=== PATIENT | female | born 1970 | race Caucasian/White ===

== ENCOUNTER → 2016-06-25 | Outpatient (CLI) | payer BC ==
[~2016-06-25] MED LIST: ALLO100T PO; CEFU500T PO; CEPH500T PO; CITA20TA12 PO; FAMO-119 PO; HYDR-3816 PO; HYDR-3820 PO; HYDR-3875 PO; HYDR-3876 PO; HYDR25TA4 PO; MOVE FREE ULTR1 EAC1 PO; MULT-301 PO; NF-ESOM40C PO; NF-URO10 PO; NITR-65 PO; OMG1KC PO; ONDN4T PO; PHEN-640 PO; TAMS0.4C98 PO
--- NOTE | 2016-06-25 17:42 | Diagnostic Imaging Report ---
PROCEDURE: MRI right joint lower extremity without contrast. TECHNIQUE: Multiplanar, multisequence non contrast-enhanced MRI of the right lower extremity was accomplished. INDICATION: Knee pain. FINDINGS: The anterior cruciate and posterior cruciate ligaments are intact. There is some mild thickening of the medial collateral ligament which otherwise appears intact. The biceps femoris, fibular collateral and iliotibial band are intact. There is degenerative maceration of both the anterior and posterior horns of the medial meniscus. Lateral meniscus is grossly normal in signal intensity and morphology. The quadriceps tendon and patellar tendons are intact. There is a moderate knee joint effusion. There is a somewhat thickened medial patellar plica. There are no other focal soft tissue abnormalities. There is complete loss of articular cartilage in the medial knee joint compartment with underlying marrow edema both in the medial femoral condyle and medial tibial plateau. The articular cartilage in the lateral knee joint compartment and patellofemoral joint is maintained. IMPRESSION: 1. Moderately severe osteoarthritic change in the medial knee joint compartment with loss of articular cartilage and underlying marrow edema. Additionally, there is degenerative maceration of the medial meniscus which is displaced medially out of the joint space. 2. Moderate knee joint effusion with thickened medial patellar plica. 3. No other internal derangement of the knee. Dictated by: Dictated on workstation # [id number]
== END ==
LOC: RAD 16:47
PROVIDERS: ATTEND Nurse Practitioner Family
DX: M25.561 Pain in right knee (principal)
CPT/HCPCS: 73721

== ENCOUNTER → 2016-06-25 | Outpatient (CLI) | payer BC ==
--- NOTE | 2016-06-25 13:15 | Diagnostic Imaging Report ---
EXAMINATION: Three views of the right knee. INDICATION: Right hip pain. FINDINGS: No fracture, dislocation, or radiopaque foreign body is seen. There is significant joint space narrowing with nearly a [id number] appearance in the medial compartment seen. Prominent osteophyte formation, mostly in the medial and patellofemoral compartments, is seen. No significant suprapatellar effusion. IMPRESSION: Osteoarthritis is most prominent in the medial compartment. Dictated by: Dictated on workstation # [id number]
== END ==
LOC: RAD 11:06
PROVIDERS: ATTEND Family Medicine
DX: M25.561 Pain in right knee (principal)
CPT/HCPCS: 73562

== ENCOUNTER 2016-07-17 08:50 | Outpatient (CLI) | payer BC ==
[~2016-07-17] VITALS: Ht 182.9 cm; Wt 150.2 kg
[2016-07-17 08:57] VITALS: BP 139/87
[2016-07-17] MEDS ORDERED: FISH1CAP15 PO (09:07)
[2016-07-17] MEDS ORDERED: CETI10TA20 PO (09:07)
[2016-07-17] MEDS ORDERED: CHOL500044 PO (09:07)
[2016-07-17] MEDS ORDERED: FLUT9.9S NSEACH (09:07)
[2016-07-17] MEDS ORDERED: DICL35CA PO (09:07)
[2016-07-17 09:42] LABS: BILIRUBIN,URINE NEGATIVE (NEGATIVE); KETONES,URINE NEGATIVE (NEGATIVE); LEUKOCYTE ESTERASE ,URINE 1+ (NEGATIVE); NITRITE,URINE NEGATIVE (NEGATIVE); PH,URINE 7 (5-9); PROTEIN,URINE NEGATIVE (NEGATIVE); UROBILINOGEN,URINE NORMAL (NORMAL)
[2016-07-17 09:43] LABS: BASOPHILS % (AUTO) 0 % (0-10); EOSINOPHILS # (AUTO) 0.3 10^3/uL (0.0-0.3); EOSINOPHILS % (AUTO) 4 % (0-10); LYMPHOCYTES # (AUTO) 1.8 X 10^3 (1.0-4.0); LYMPHOCYTES % (AUTO) 24 % (12-44); MEAN CORPUSCULAR HEMOGLOBIN 26 PG (25-34); MEAN CORPUSCULAR HGB CONC 33 G/DL (32-36); MEAN CORPUSCULAR VOLUME 79 FL (80-99); MONOCYTES # (AUTO) 0.4 X 10^3 (0.0-1.0); MONOCYTES % (AUTO) 6 % (0-12); NEUTROPHILS % (AUTO) 67 % (42-75); PLATELET COUNT 292 10^3/uL (130-400); RED BLOOD COUNT 4.99 10^6/uL (4.35-5.85); RED CELL DISTRIBUTION WIDTH 16.1 % (10.0-14.5); WHITE BLOOD COUNT 7.4 10^3/uL (4.3-11.0)
[2016-07-17 09:57] LABS: SQUAMOUS EPITHELIAL CELL,UR 0-2 /HPF; WBC,URINE 0-2 /HPF
[2016-07-17 09:59] LABS: INR 0.9 (0.8-1.4); PROTHROMBIN TIME PATIENT 11.9 SEC (12.2-14.7)
[2016-07-17 10:01] LABS: ALANINE AMINOTRANSFERASE 35 U/L (0-55); ALBUMIN 3.9 G/DL (3.2-4.5); ANION GAP 10 MMOL/L (5-14); ASPARTATE AMINO TRANSFERASE 28 U/L (5-34); BILIRUBIN,TOTAL 0.3 MG/DL (0.1-1.0); BLOOD UREA NITROGEN 22 MG/DL (7-18); BUN/CREATININE RATIO 24; CALCIUM 9.3 MG/DL (8.5-10.1); CARBON DIOXIDE 25 MMOL/L (21-32); CHLORIDE 103 MMOL/L (98-107); CREATININE SERUM 0.92 MG/DL (0.60-1.30); GFR ESTIMATED > 60; GLUCOSE 120 MG/DL (70-105); POTASSIUM 3.6 MMOL/L (3.6-5.0); SODIUM 138 MMOL/L (135-145); TOTAL PROTEIN 7.1 G/DL (6.4-8.2)
[2016-07-17 12:24] LABS: ERYTHROCYTE SEDIMENTATION RATE 11 MM/HR (0-20)
--- NOTE | 2016-07-17 14:31 | Diagnostic Imaging Report ---
PA and lateral views of the chest. INDICATION: Preoperative evaluation for knee replacement. FINDINGS: There is cardiomegaly without active congestion or failure. Mild opacity in the anterior aspect of the right lung base is probably related to prominent pericardial fat pad with no definite consolidation in the lungs. No effusion or pneumothorax. The mediastinum and alex appear unremarkable. Degenerative anterior osteophytes in the thoracic spine seen. IMPRESSION: Cardiomegaly. Dictated by: Dictated on workstation # [id number]
== END 2016-07-17 09:50 | disposition home or self-care (01) ==
LOC: PREOP 08:50
PROVIDERS: ATTEND Orthopaedic Surgery
DX: Z01.810 Encounter for preprocedural cardiovascular examination (principal); Z01.812 Encounter for preprocedural laboratory examination; Z11.2 Encounter for screening for other bacterial diseases; M17.11 Unilateral primary osteoarthritis, right knee; R53.83 Other fatigue; I51.7 Cardiomegaly
CPT/HCPCS: 36415; 71020; 80053; 81000; 85025; 85610; 85652; 86850; 86900; 86901; 87081; 93005

== ENCOUNTER 2016-07-23 06:15 | Inpatient (IN) | payer BC ==
--- NOTE | 2016-07-15 16:39 | HISTORY AND PHYSICAL ---
DATE OF SERVICE: 07/23/2016 REASON FOR ADMISSION: Left total knee arthroplasty. HISTORY OF PRESENT ILLNESS: The patient is a 46-year-old female with longstanding right knee pain. She has undergone treatment with injections and anti-inflammatories and arthroscopy without relief. She reports marked functional impairment, and due to failure to improve with conservative measures, the patient has elected to proceed with surgical intervention. Radiographs reveal complete loss of medial and patellofemoral joint spaces. The patient understands that at her age, she will likely require a revision arthroplasty. REVIEW OF SYSTEMS: No chest pain. No shortness of breath. No dysuria. PAST MEDICAL HISTORY: Renal stones. PAST SURGICAL HISTORY: Knee arthroscopy, wrist, cholecystectomy, , lithotripsy. FAMILY HISTORY: Noncontributory. PRIMARY CARE PROVIDER: Dr. Ortiz. MEDICATIONS: Potassium, allopurinol, hydrochlorothiazide and vitamin D. ALLERGIES: WELLBUTRIN. SOCIAL HISTORY: The patient drinks alcohol socially. Denies tobacco use. PHYSICAL EXAMINATION: GENERAL: The patient is well developed, well nourished, in no acute distress. HEENT: Normocephalic, atraumatic. Pupils are equal, round and reactive to light. Oropharynx is clear. NECK: Supple. No lymphadenopathy. LUNGS: Clear to auscultation bilaterally. HEART: Regular rate and rhythm. ABDOMEN: Soft, nontender, nondistended. EXTREMITIES: The patient ambulated with an antalgic gait on the right. The right knee demonstrates a moderate effusion. She is tender along her mediofemoral condyle. She has patellofemoral crepitus with range of motion. Range of motion is 0/4/120. No varus valgus laxity. Negative anterior and posterior drawer. Negative straight leg raise. No pain with internal or external rotation of the hip. IMPRESSION: Severe right knee osteoarthritis unresponsive to conservative measures. PLAN: Right total knee arthroplasty. The risks, benefits, options, ramifications and recovery have been discussed at length with the patient. She understands and wishes to proceed. Job ID: [id number] DocumentID: [id number] Dictated Date: 07/15/2016 16:09:05 Strategies Analyst Date: 07/15/2016 16:38:24 Dictated By: GRETEL REGALADO MD [facility]
[~2016-07-23] VITALS: Ht 182.9 cm; Wt 150.2 kg
[~2016-07-23 06:15] MED LIST changes: +CETI10TA20 PO; +CHOL500044 PO; +DICL35CA PO; +FISH1CAP15 PO; +FLUT9.9S NSEACH
[2016-07-23] MEDS ORDERED: DEXAMETHASONE PF 10 MG/ML (DECADRON) VIAL ONE (06:38)
[2016-07-23] MEDS ORDERED: fentaNYL INJECTION 100 MCG/2 ML AMP ONE ×2 (06:38→08:21)
[2016-07-23] MEDS ORDERED: proPOfol 200 MG/20 ML (DIPRIVAN) VIAL IV ONE (06:38)
[2016-07-23] MEDS ORDERED: SEVOFLURANE (ULTANE) 15 ML INHAL SOLN ONE ×8 (06:38→09:30)
[2016-07-23] MEDS ORDERED: LIDOCAINE PF 2% 5 ML (XYLOCAINE) VIAL ONE (06:38)
[2016-07-23] MEDS ORDERED: HURRICAINE EXT TUBE (BENZOCAINE) ONE (06:38)
[2016-07-23] MEDS ORDERED: MIDAZOLAM 2 MG/2 ML (VERSED) VIAL ONE (06:39)
[2016-07-23] MEDS ORDERED: ATRACURIUM 50 MG/5 ML (TRACRIUM) IV ONE (06:44)
[2016-07-23] MEDS ORDERED: FAMOTIDINE 20MG/2ML IV (PEPCID) IV ONE (06:45)
[2016-07-23] MEDS ORDERED: CEFUROXIME 1.5 GM (ZINACEF) VIAL ONE (06:58)
[2016-07-23] MEDS ORDERED: NS (IVPB) 50 ML ONE (06:58)
[2016-07-23] MEDS: LACTATED RINGERS 1,000 ML IV PRN ×2 (07:10→08:34)
--- NOTE | 2016-07-23 07:21 | Progress Note-Pre Operative ---
Pre-Operative Progress Note H&P Reviewed The H&P was reviewed, patient examined and no changes noted. Date Seen by Provider: Jul 23, 2016 Time Seen by Provider: 07:11 Date H&P Reviewed: Jul 23, 2016 Time H&P Reviewed: 07:11 Pre-Operative Diagnosis: right knee primary osteoarthritis GRETEL REGALADO MD Jul 23, 2016 07:21
--- NOTE | 2016-07-23 07:22 | Progress Note-Post Operative ---
Post-Operative Progess Note Surgeon (s)/Inspector Pawnshop Detail (s) Surgeon GRETEL REGALADO MD Inspector Pawnshop Detail: Brooks Coffman Pre-Operative Diagnosis right knee primary osteoarthritis Post-Operative Diagnosis right knee primary osteoarthrits Procedure & Operative Findings Date of Procedure 07/23/16 Procedure Performed/Findings right total knee arthroplasty Anesthesia Type GETA Estimated Blood Loss Estimated blood loss (mL): minimal Specimens/Packing Specimens Removed none Packing: none GRETEL REGALADO MD Jul 23, 2016 07:22
[2016-07-23] MEDS ORDERED: CEFUROXIME 1.5 GM/NS 50 ML IVPB IV ONE ×2 (07:30)
[2016-07-23] MEDS ORDERED: CATHETER FLUSH 10 ML SYR IV PRN (07:30)
[2016-07-23] MEDS ORDERED: INTRA-ARTICULAR INJ ONE ×5 (07:30)
[2016-07-23 07:38] VITALS: BP 126/89
[2016-07-23] MEDS ORDERED: ESMOLOL 100 MG/10 ML (BREVIBLOC) VIAL ONE (08:11)
[2016-07-23] MEDS ORDERED: morphine PF (DURAMORPH) 10 MG/10 ML AMP ONE (09:05)
[2016-07-23] MEDS ORDERED: morphine INJ 10 MG/ML 1ML (SYR OR VIAL) ONE (09:14)
[2016-07-23] MEDS: HYDROmorphone (DILAUDID) 2 MG/ML VIAL IVP PRN ×4 (09:46→10:16)
--- NOTE | 2016-07-23 10:17 | Progress Note-Standard ---
Standard Progress Note Progress Notes/Assess & Plan Date Seen by Provider: Jul 23, 2016 Time Seen by Provider: 10:16 Progress/Assessment & Plan Post op check No complaints Radiographs--HW well positioned. No fractures RLE--2 plus DP pulse with brisk cap refill. Sensation intact throughout. Intact DF and PF of toes and ankle s/p RTKA Mobilize as able GRETEL REGALADO MD Jul 23, 2016 10:17
[2016-07-23] MEDS ORDERED: OXYC-197 PO (10:20)
--- NOTE | 2016-07-23 10:24 | Diagnostic Imaging Report ---
2 views of the right knee. Indication: post total knee arthroplasty Findings: There is femoral and tibial prosthesis with patellar resurfacing and prosthesis seen. Anterior soft tissue post-operative changes are noted with anterior skin gabriela seen. Impression: Baseline post right total knee arthroplasty in good alignment. Dictated by: Dictated on workstation # [id number]
[2016-07-23] MEDS ORDERED: morphine PCA 30 MG/30 ML VIAL IV ONE (10:54)
[2016-07-23] MEDS ORDERED: NS IV 1000 ML 1,000 ML ONE (10:54)
[2016-07-23] MEDS ORDERED: ACETAMINOPHEN 325 MG TABLET/CAPLET (TYLENOL) PO PRN (11:03)
[2016-07-23] MEDS: NS IV 1000 ML 1,000 ML IV SCH ×3 (11:05→23:21)
[2016-07-23] MEDS ORDERED: diphenhydrAMINE 50 MG/ML INJ (BENADRYL) IVP PRN (11:05)
[2016-07-23] MEDS ORDERED: LIRA0.6P3 SQ (11:26)
[2016-07-23] MEDS ORDERED: LIRA0.6P3 SC (11:26)
--- NOTE | 2016-07-23 11:45 | OPERATIVE REPORT ---
DATE OF SERVICE: 07/23/2016 PREOPERATIVE DIAGNOSIS: Right knee primary osteoarthritis. POSTOPERATIVE DIAGNOSIS: Right knee primary osteoarthritis. PROCEDURE: Right total knee arthroplasty. SURGEON: Terrell CHANGE MANAGEMENT DIRECTOR: Brooks Coffman, who assisted throughout the procedure and closed the incision. ANESTHESIA: General endotracheal by Dr. Patterson TOURNIQUET TIME: 70 minutes at 300 mmHg. ESTIMATED BLOOD LOSS: Minimal. DRAINS: None. COMPLICATIONS: None. POSTOPERATIVE PLAN: Routine total knee arthroplasty protocol. MATERIALS: MicroPort cemented size 5 Evolution femur, cemented size 3 Advance tibia base with a 30 mm stem with a 12 mm insert and a cemented 32 patellar button. DISPOSITION: Patient was transferred to the recovery room awake and in stable condition. STATEMENT OF MEDICAL NECESSITY: Patient is a 46-year-old female with a longstanding progressive right knee pain. Radiographs revealed complete loss of medial and patellofemoral joint spaces. She had undergone treatment with extensive conservative measures, including arthroscopy, injections, anti-inflammatories, rest and activity modifications without relief and due to functional impairment and failure to improve with conservative measures, the patient elected to proceed with surgical intervention. PROCEDURE: After risks and benefits of the procedure were discussed and questions were answered, an informed consent was now placed in the chart. The operative site was confirmed in the preop holding area and initialed by the surgeon. The patient was then transported to the operating room and after adequate levels of general endotracheal anesthetic were obtained, a timeout was called, confirming the operative site. The right lower extremity was then prepped and draped in the usual sterile fashion. With the leg elevated and the knee flexed, tourniquet was inflated to 300 mmHg. A standard anterior approach was utilized. Hemostasis was obtained with cautery. The medial parapatellar arthrotomy was performed leaving a 1 cm cuff on the patella for later reattachment. A portion of the fat pad was resected and a subperiosteal release was performed on the proximal and medial tibia, being careful to stay on the bony surface. The ACL was resected. The intramedullary guide was passed into the femur. The distal cutting block was placed and a distal cut was made. The femur was sized to a size 5. The 5 cutting block was placed parallel to the epicondylar axis and cuts were made from [id number]. A subperiosteal release was then performed on the posterior distal femur, being careful to stay on the bony surface with a curved osteotome. Attention was then turned to the tibia. Intramedullary guide was passed into the tibia. The cutting block was placed. The drop chloe transected the intramedullary access. A cut was made. The 3 baseplate was placed, which had excellent coverage. This was pinned into position and then prepared with a drill and keel punch. The patella was then prepared using the freehand technique by resecting 10 mm off the undersurface. The peg guide was placed and the peg holes were drilled. The trials were inserted. The femoral trochlear cut was made. With a 12 mm insert and 32 mm button, full extension was easily obtained and 120 degrees of flexion with gravity was easily obtained. The patella tracked well. The knee was stable to anterior/posterior and medial/lateral stress in flexion and extension. Trials were removed. The joint was irrigated with pulse lavage. The bone ends were irrigated with pulse lavage. The periarticular block was placed in the posterior capsule, medial and lateral retinaculum and extensor mechanism, as well as the subcutaneous tissue. After the bone ends had been irrigated and dried. The tibial base plate was cemented into position. Excessive cement was removed. The superior surface was irrigated and dried and polyethylene insert was placed. The distal femur was irrigated and dried and the femoral prosthesis was cemented into position and excessive cement was removed. The knee was brought out and into full extension until the cement had cured. The undersurface of the patella was irrigated and dried and the patellar button was cemented into position. This was held until the cement had cured. Then, the knee was taken through a range of motion. Full extension was easily obtained, 120 degrees of flexion with gravity was easily obtained. The patella tracked well. There was no laxity in flexion or extension to medial/lateral or anterior/posterior stress. The joint was further irrigated with the pulse lavage. The arthrotomy was closed with #2 Tevdek in uvxcaj-ow-[id number] interrupted fashion. The knee was then flexed and the repair was stable with the patella tracking well. The subcutaneous tissues were irrigated with pulse lavage and 0 Vicryl was used for the deep subcutaneous tissue, 2-0 Vicryl for the superficial subcutaneous tissue. Cressona were used on the skin. A soft dressing was applied. The tourniquet was deflated. Patient was transported to the recovery room, awake and in stable condition. Job ID: [id number] DocumentID: [id number] Dictated Date: 07/23/2016 09:33:36 Process Lead Date: 07/23/2016 11:44:43 Dictated By: GRETEL REGALADO MD
[2016-07-23 12:00] VITALS: BP 151/84
[2016-07-23] MEDS: ONDANSETRON 4 MG/2 ML (SDV) Z0FRAN IVP PRN (12:57)
[2016-07-23] MEDS: SENNA W/DOCUSATE (SENOKOT S) TABLET PO SCH ×2 (12:57→21:08)
--- NOTE | 2016-07-23 14:35 | Physical Therapy Evaluation ---
PT Evaluation-General Medical Diagnosis Admission Date Jul 23, 2016 at 06:15 Medical Diagnosis: right TKA Onset Date: Jul 23, 2016 Therapy Diagnosis Therapy Diagnosis: impaired mobility, strength, ROM, endurance Height/Weight Height (Feet): 6 Height (Inches): 0.00 Weight (Pounds): 331 Weight (Ounces): 1.0 Precautions Precautions/Isolations: Fall Prevention, Standard Precautions Weight Bear Status Weight Bearing Restriction: Weight Bearing/Tolerated Location Restriction: R LE Referral Physician: Brooks Coffman Reason for Referral: Evaluation/Treatment Medical History Additional Medical History renal stones Current History elective surgery after conservative treatment Reviewed History: Yes Social History Current Living Status: Spouse Prior/Core FIM Prior Level of Function Functional [place] Measure 0=Not Assessed/NA 4=Minimal Assistance 1=Total Assistance 5=Supervision or Setup 2=Maximal Assistance 6=Modified [place] 3=Moderate Assistance 7=Complete [place] Bed Mobility: 7 Transfers (B,C,W/C) (FIM): 7 Gait: 7 PT Evaluation-Current Subjective Patient in bed pre tx, agrees to PT, has 5/10 pain. Pt/Family Goals to be independent at home Objective Patient Orientation: Normal For Age Attachments: Oxygen, IV ROM/Strength ROM Lower Extremities right knee flexion 40 degrees, extension +5 degrees Strenght Lower Extremities NT Integumentary/Posture Bowel Incontinence: No Bladder Incontinence: No Neuromuscular (Tone, Coordination, Reflexes) WNL Sensory Vision: Functional Hearing: Functional Sensation Right Lower Extremit: Intact Sensation Left Lower Extremity: Intact Transfers Functional [place] Measure 0=Not Assessed/NA 4=Minimal Assistance 1=Total Assistance 5=Supervision or Setup 2=Maximal Assistance 6=Modified [place] 3=Moderate Assistance 7=Complete [place] Transfers (B, C, W/C) (FIM): 4 Scootin Rollin Supine to/from Sit: 4 Sit to/from Stand: 4 Bed mobility SBA except for supine to sit min assist with right leg, CGA to stand. Patient was nauseated after standing but wanted to ambulate to the bathroom. Gait Mode of Locomotion: Walk Anticipated Mode of Locomotion: Walk Gait (FIM): 1 Distance: 20'x2 Gait Level of Assist: 4 Gait Persons Needed: 1 Gait Assistive Device: FWW Comments/Gait Description slow, antalgic, flexed right knee, poor heel strike Balance Sitting Static: Normal Sitting Dynamic: Normal Standing Static: Fair Standing Dynamic: Fair Treatment RLE TKA protocol x10 (AP, QS, HS, SAQ, SLR). CPM applied and set to 40 flex/-2 ext Assessment/Needs Patient has impaired mobility, strength, ROM, and endurance post right TKA. Rehab Potential: Fair PT Train Operator Goals Train Operator Goals PT Usp Goals Time Frame: Jul 30, 2016 Transfers (B,C,W/C) (FIM): 5 Gait (FIM): 5 Distance: 150' Gait Level of Assist: 5 Gait Assistive Device: FWW PT Plan Problem List Problem List: Activity Tolerance, Functional Strength, Safety, Balance, Gait, Transfer, Bed Mobility, ROM Treatment/Plan Treatment Plan: Continue Plan of Care Treatment Plan: Bed Mobility, Education, Functional Activity Domenic, Functional Strength, Gait, Safety, Therapeutic Exercise, Transfers Treatment Duration: Jul 30, 2016 # of days/week 5-6 Visits Per Week: 10-11 Minutes/Day (M-F): 15-30 Minutes/Day (Sat/Lara): 15-30 Pt/Family Agrees w/Plan: Yes Safety Risks/Education Patient Education: Gait Training, Transfer Techniques, Reviewed Use of Ice, Correct Positioning, Disease Process, Safety Issues Teaching Recipient: Patient Teaching Methods: Demonstration, Discussion Response to Teaching: Reinforcement Needed Discharge Recommendations Plan Patient will perform bed mobility and transfer training, balance and endurance training, functional strengthening, stair training, gait training, and education , to improve functional mobility and independence at home. Therapy D/C Recommendations: Home w/ Family Support Time/GCodes Time In: 1345 Time Out: 1430 Total Billed Treatment Time: 45 Total Billed Treatment 1 visit EVL 15' GT 15' EX 15' QUINTIN NEWTON PT Jul 23, 2016 14:35
[2016-07-23] MEDS: CEFUROXIME INJECTION 750 MG in NS (IVPB) 50 ML IV SCH ×2 (15:13→23:16)
[2016-07-23] MEDS: oxyCODONE/APAP 5/325MG (PERCOCET 5) TABLET PO PRN ×2 (16:41→22:14)
[2016-07-23 16:50] VITALS: BP 117/62
[2016-07-23 17:39] VITALS: BP 117/62
[2016-07-23 20:28] VITALS: BP 114/63
[2016-07-24] VITALS: BP 116/56
[2016-07-24] MEDS: oxyCODONE/APAP 5/325MG (PERCOCET 5) TABLET PO PRN ×8 (02:31→23:14)
[2016-07-24 04:20] VITALS: BP 115/58
[2016-07-24] MEDS: MULTIVIT W/MINERALS TAB (THERAGRAN M) PO SCH (06:05)
--- NOTE | 2016-07-24 07:38 | Progress Note-Standard ---
Standard Progress Note Progress Notes/Assess & Plan Date Seen by Provider: Jul 24, 2016 Time Seen by Provider: 07:37 Progress/Assessment & Plan Post op check No complaints Radiographs--HW well positioned. No fractures RLE--2 plus DP pulse with brisk cap refill. Sensation intact throughout. Intact DF and PF of toes and ankle s/p RTKA Mobilize as able Final Diagnosis No complaints Vital Signs Date Time Temp Pulse Resp B/P (MAP) Pulse Ox O2 Delivery O2 Flow Rate FiO2 07/24/16 06:47 96 07/24/16 04:20 98.7 86 22 115/58 93 07/24/16 02:35 100 07/24/16 00:00 99.3 94 24 116/56 97 07/23/16 22:47 97 07/23/16 20:28 99.5 84 24 114/63 96 07/23/16 18:54 94 07/23/16 18:18 20 07/23/16 16:50 99.5 83 20 117/62 93 07/23/16 15:16 100 3.00 07/23/16 12:00 97.1 83 24 151/84 94 07/23/16 11:20 94 4.00 07/23/16 10:16 98.5 07/23/16 10:06 98.5 07/23/16 09:56 98.5 07/23/16 09:46 98.5 07/23/16 08:48 98.2 I & O 07/24/16 07:00 Intake Total 3870 ml Output Total 300 ml Balance 3570 ml Laboratory Tests Test 07/24/16 05:59 Range/Units Hemoglobin 10.1 #L 11.5-16.0 G/DL Hematocrit 32 L 35-52 % RLE--dressing intact. NVI distally. No calf tenderness. Neg Joe's s/p RTKA PT/OT GRETEL REGALADO MD Jul 24, 2016 07:38
[2016-07-24 08:00] VITALS: BP 129/67
[2016-07-24] MEDS: morphine PCA 30 MG/30 ML VIAL IV PRN ×2 (08:40→17:26)
--- NOTE | 2016-07-24 09:31 | Consultation ---
History of Present Illness History of Present Illness Patient Consulted On(cholo/time) 07/24/16 09:20 Date of Admission 07/23/16 Reason for Visit: KNEE REPLACEMENT History of Present Illness PT IS A 46 Y/O FEMALE WHO IS KNOWN TO ME FROM CLINIC. SHE HAS HISTORY OF ARTHRITIS OF HER KNEE ON THE RIGHT, SHE HAD AN EPISODE OF HER KNEE FEELING LIKE IT WAS GOING TO GIVE OUT WHEN SHE WAS WALKING, SHE WAS EVALUATED BY DR. REGALADO, AND HE RECOMMENDED THAT SHE NEEDED TO HAVE A TOTAL KNEE REPLACEMENT WHICH SHE UNDERWENT YESTERDAY. SHE REPORTS THAT SHE HAS UNCONTROLLED PAIN, HAS BEEN IN PAIN FOR SEVERAL HOURS PRIOR TO MY EVALUATION OF THE PATIENT THIS MORNING. Allergies and Home Medications Allergies Coded Allergies: bupropion (Verified Allergy, Intermediate, HIVES, 11/26/15) Home Medications Allopurinol 100 Mg Tablet, 100 MG PO DAILY, (Reported) Cetirizine HCl 10 Mg Tablet, 10 MG PO DAILY, (Reported) Cholecalciferol (Vitamin D3) 5,000 Unit Tablet, 5,000 UNIT PO DAILY, (Reported) Diclofenac Submicronized 35 Mg Capsule, 35 MG PO BID, (Reported) Fish Oil/Dha/Epa 1 Each Capsule, 1,200 EACH PO BID, (Reported) Fluticasone Propionate 9.9 Ml [place].susp, 1 SPRAY NSEACH BID PRN for CONGESTION, (Reported) Hydrochlorothiazide 25 Mg Tablet, 25 MG PO DAILY, (Reported) Liraglutide 0.6 Mg/0.1 Ml Pen.injctr, 1.8 MG SC DAILY, (Reported) USES ALONG WITH 1.2MG DOSE FOR TOTAL DOSE OF 3MG Liraglutide 0.6 Mg/0.1 Ml Pen.injctr, 1.2 MG SQ DAILY, (Reported) USE ALONG WITH 1.8MG FOR TOTAL DOSE OF 3MG Oxycodone HCl/Acetaminophen 1 Each Tablet, 1 EACH PO Q4H, #60 Prescribed by: GRETEL REGALADO on 07/23/16 1020 Potassium Citrate 10 Meq Tab, 10 MEQ PO TID, (Reported) Past Gwbyjzw-Sdyggj-Ovgcph Hx Patient Social History Alcohol Use: Occasionally Uses Recreational Drug Use: No Smoking Status: Former Smoker Type Used: Cigarettes 2nd Hand Smoke Exposure: No Recent Foreign Travel: No Contact w/Someone Who Travel: No Recent Infectious Disease Expo: No Recent Hopitalizations: No Physical Abuse Screen: No Sexual Abuse: No Immunizations Up To Date Tetanus Booster (TDap): Unknown Date of Influenza Vaccine: Nov 13, 2015 Seasonal Allergies Seasonal Allergies: Yes Surgeries HX Surgeries: Yes (, WRIST SURGERY, KNEE SCOPE, ESWL) Surgeries: Section, Gallbladder, Orthopedic Respiratory Hx Respiratory Disorders: No Cardiovascular Hx Cardiac Disorders: No Neurological Hx Neurological Disorders: No Reproductive System : No Hx Reproductive Disorders: No Sexually Transmitted Disease: No HIV/AIDS: No Female Reproductive Disorders: Denies, Polycystic Ovarian Dis Genitourinary Hx Genitourinary Disorders: Yes (RECENT UTI) Genitourinary Disorders: Kidney Stones, UTI-Chronic Gastrointestinal Hx Gastrointestinal Disorders: No Musculoskeletal Hx Musculoskeletal Disorders: Yes Musculoskeletal Disorders: Arthritis Endocrine Hx 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) HEENT HX ENT Disorders: Yes (GLASSES) Loss of Vision: Bilateral Hearing Impairment: Denies Cancer Hx Cancer: No Psychosocial Hx Psychiatric Problems: Yes Behavioral Health Disorders: Depression Integumentary HX Skin/Integumentary Disorder: No Blood Transfusions Hx Blood Disorders: No Adverse Reaction to a Blood Tr: No (N/A) Reviewed Nursing Assessment Reviewed/Agree w Nursing PMH: Yes Family Medical History Significant Family History: Heart Disease, Diabetes, Hypertension, Renal Disease Family Medial History: Cardiovascular disease 19 FATHER Diabetes mellitus 19 FATHER Hypertension 19 FATHER Kidney disease 19 FATHER Review of Systems-General Date Seen by Provider: Jul 25, 2016 Time Seen by Provider: 09:20 Constitutional: No fever, No malaise, No weakness EENTM: No mouth pain, No throat pain Respiratory: No cough, No dyspnea on exertion, No short of breath Cardiovascular: No chest pain, No edema, No palpitations Gastrointestinal: No abdominal pain, constipation, No diarrhea Genitourinary: no symptoms reported Musculoskeletal: No back pain, other (RIGHT KNEE PAIN) Skin: no symptoms reported Psychiatric/Neurological: Denies Anxiety, Denies Depressed All Other Systems Reviewed Negative Unless Noted: Yes Physical Exam-General Problems Physical Exam Vital Signs Vital Sign - Last 12Hours 07/23/16 07/23/16 07:38 11:20 Temp 98.8 Pulse 85 Resp 16 B/P (MAP) 126/89 Pulse Ox 94 O2 Flow Rate 4.00 Capillary Refill : General Appearance: WD/WN, moderate distress Eyes: Bilateral Eye EOMI, Bilateral Eye Normal Inspection, Bilateral Eye PERRL HEENT: PERRL/EOMI, pharynx normal Neck: non-tender, supple, normal inspection Respiratory: chest non-tender, lungs clear, normal breath sounds, no respiratory distress Cardiovascular: regular rate, rhythm, no edema Gastrointestinal: normal bowel sounds, non tender, soft, no organomegaly, no pulsatile mass Rectal: deferred Extremities: non-tender (ON LEFT, BUT PAIN IN RIGHT KNEE WITH MOVEMENT), normal capillary refill Neurologic/Psychiatric: senior engineering technician II-XII nml as tested, no motor/sensory deficits, alert, normal mood/affect, oriented x 3 Skin: warm/dry Lymphatic: no adenopathy Assessment/Plan Assessment/Plan Admission Diagnosis/Plan RIGHT KNEE PAIN POST-OP TOTAL RIGHT KNEE REPLACEMENT HYPERTENSION PCOS INSULIN RESISTANCE SYNDROME OBESITY RIGHT KNEE PAIN STATUS POST TOTAL RIGHT KNEE REPLACEMENT - CONTINUE WITH PHYSICAL THERAPY, INCREASE PAPER STACKER TODAY FOR BETTER PAIN CONTROL, MONITOR SYMPTOMS, TRANSITION TO ORAL MEDICATIONS WHEN ABLE. HYPERTENSION - CONTROLLED -RESTART HOME MEDICATIONS. PCOS AND INSULIN RESISTANCE SYNDROME - RESTART VICTOZA OBESITY Clinical Quality Measures DVT/VTE Risk/Contraindication: Risk Factor Score Per Nursin RFS Level Per Nursing on Admit: 4+=Very High JARED FERNANDES MD Jul 24, 2016 09:31
[2016-07-24] MEDS: SENNA W/DOCUSATE (SENOKOT S) TABLET PO SCH ×2 (10:33→20:27)
[2016-07-24] MEDS: ENOXAPARIN 30 MG/0.3 ML (LOVENOX) SYR SC SCH ×2 (10:33→20:28)
[2016-07-24] MEDS: ASPIRIN E.C. 81 MG (ECOTRIN) TAB PO SCH ×2 (10:33→12:23)
[2016-07-24] MEDS ORDERED: ONDANSETRON 4 MG/2 ML (SDV) Z0FRAN IVP PRN (11:15)
[2016-07-24] MEDS ORDERED: PROMETHAZINE INJ 25 MG/ML (PHENERGAN) AMP IVP PRN (11:15)
--- NOTE | 2016-07-24 11:18 | Physical Therapy Daily Note ---
PT Daily Note-Current Subjective Patient agrees to PT. Patient is crying due to right knee pain 10/10. Pain Numeric Pain Scale: 10-Worst Possible Pain Location: Right Location Body Site: Knee Pain Description: Acute Mental Status Patient Orientation: Normal For Age Attachments: IV HEADER UP Transfers Functional [place] Measure 0=Not Assessed/NA 4=Minimal Assistance 1=Total Assistance 5=Supervision or Setup 2=Maximal Assistance 6=Modified [place] 3=Moderate Assistance 7=Complete IndependenceIRFPAI Quality Coding Scale 6 Independent with activity with or without an assistive device 5 Patient requires set up or clean up by helper. Patient completes activity by themselves 4 Supervision or touching assist (CGA). [place] provide cues , steadying assist 3 The helper provides less than half the effort to complete the activity 2 The helper provides more than half the effort to complete the activity 1 Dependent. The helper does all the effort to complete an activity 7 Patient refused to complete or attempt activity 9 The patient did not perform the activity before the current illness or injury 88 Not attempted due to Medical conditions or safety concerns Transfers (B, C, W/C) (FIM): 5 Scootin Rollin Supine to/from Sit: 5 Sit to/from Stand: 5 Weight Bearing Weight Bearing Restriction: Weight Bearing/Tolerated Location Restriction: R LE Gait Training Gait (FIM): 5 Distance (FIM): 3=150 ft Distance: 150' Gait Level of Assist: 5 Gait Assistive Device: FWW slow and antalgic Exercises Supine Ex: Ankle pumps, Quad Set Supine Reps: 10 Seated Therapy Exercises: Ankle pumps, Long arc quads Seated Reps: 10 Assessment Patient tolerated treatment well and is up in recliner with needs met. Patient utilizes HEADER UP and oral pain medication with minimal result. PT to increase activity as tolerated by patient. PT Intermediate Goals Intermediate Goals PT Ice Cream Freezer Assistant Goals Time Frame: Jul 30, 2016 Transfers (B,C,W/C) (FIM): 5 Gait (FIM): 5 Distance: 150' Gait Level of Assist: 5 Gait Assistive Device: FWW PT Plan Treatment/Plan Treatment Plan: Continue Plan of Care Treatment Plan: Bed Mobility, Education, Functional Activity Domenic, Functional Strength, Gait, Safety, Therapeutic Exercise, Transfers Treatment Duration: Jul 30, 2016 Visits Per Week: 10-11 Minutes/Day (M-F): 15-30 Minutes/Day (Sat/Lara): 15-30 Time/GCodes Time In: 920 Time Out: 945 Total Billed Treatment Time: 25 Total Billed Treatment 1 visit GT 15 min EX 10 min CA LIRIANO PT Jul 24, 2016 11:18
[2016-07-24 12:00] VITALS: BP 118/72
[2016-07-24] MEDS: NS IV 1000 ML 1,000 ML IV SCH ×2 (12:03→23:15)
[2016-07-24] MEDS: ONDANSETRON 4 MG/2 ML (SDV) Z0FRAN IVP PRN (12:04)
--- NOTE | 2016-07-24 13:48 | Anesthesia-General Post-Op ---
General Patient Condition Mental Status/LOC: Same as Preop Cardiovascular: Satisfactory Nausea/Vomiting: Absent Respiratory: Satisfactory Pain: Controlled Complications: Absent Post Op Complications Complications None Follow Up Care/Instructions Patient Instructions None needed. Anesthesia/Patient Condition Patient Condition Patient is doing well, no complaints, stable vital signs, no apparent adverse anesthesia problems. No complications reported per nursing. RYAN WEST CRNA Jul 24, 2016 13:48
--- NOTE | 2016-07-24 14:40 | Occupational Therapy Eval ---
OT Evaluation-General/PLF Medical Diagnosis Admission Date Jul 23, 2016 at 06:15 Medical Diagnosis: right TKA Onset Date: Jul 23, 2016 Therapy Diagnosis Therapy Diagnosis: Decreased ADL skills Height/Weight Height (Feet): 6 Height (Inches): 0.00 Weight (Pounds): 331 Weight (Ounces): 1.0 Precautions Precautions/Isolations: Fall Prevention, Standard Precautions Safety Interventions: None Weight Bear Status Weight Bearing Restriction: Weight Bearing/Tolerated Location Restriction: R LE Referral Physician: Brooks Coffman Referral Reason: Activity Tolerance, Self Care, Evaluation/Treatment, Strengthening/ROM Medical History Additional Medical History cholecystectomy, failed conservative measures. Current History Elective knee replacement. Reviewed History: Yes Social History Home: Single Level Current Living Status: Spouse Entry Into Home: Stairs With Railing Steps Into Home: 3 ADL-Prior Level of Function ADL PLOF Comments Pt. was independent with all self care, and child and family counselor. DME/Equipment: Grab Bars, Tub/Shower DME/Equipment Comments Pt. has a 4 point walker, 4 wheeled walker, and cane. 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 Drive Self: Yes OT Current Status Subjective Pt. does not report a pain level, but states, "it smarts." Appearance Pt. up in chair with oxygen on and ice on knee. Does have PAPER BALING MACHINE OPERATOR and pushes it during treatment. Mental Status/Objective Patient Orientation: Person, Place, Time, Situation Attachments: Oxygen, Polar Pack Current Glasses/Contacts: Yes Hand Dominance: Right Upper Extremity ROM WFL Upper Extremity Coordination intact Upper Extremity Sensation intact Upper Extremity Strength WFL ADL-Treatment Functional [place] Measure 0=Not Assessed/NA 4=Minimal Assistance 1=Total Assistance 5=Supervision or Setup 2=Maximal Assistance 6=Modified [place] 3=Moderate Assistance 7=Complete IndependenceIRFPAI Quality Coding Scale 6 Independent with activity with or without an assistive device 5 Patient requires set up or clean up by helper. Patient completes activity by themselves 4 Supervision or touching assist (CGA). [place] provide cues , steadying assist 3 The helper provides less than half the effort to complete the activity 2 The helper provides more than half the effort to complete the activity 1 Dependent. The helper does all the effort to complete an activity 7 Patient refused to complete or attempt activity 9 The patient did not perform the activity before the current illness or injury 88 Not attempted due to Medical conditions or safety concerns Bathing (FIM): 5 (Pt. agrees to spongebath up in chair. Pt. is able to reach UE/trunk, and aicha areas in chair by leaning side to side. Has WILL hose, original bandage, and ice on knee. Declines bathing lower half.) Lower Body Dressing (FIM): 4 (Pt. reports that she put on her shorts earlier, and that nursing had to help her a bit to get over her foot. Nursing confirms this. Pt. states that her socks are not a problem, and that if she needs help at home she has her daughter and spouse.) Toileting (FIM): 5 (Pt. reports that she has been up to the toilet already, and has no difficulty cleansing self. Nursing confirms this.) Pt. states that she is not concerned about being able to complete ADLs at home, after it is explained to her what OT's role is. Pt. verbalizes understanding of this. States that she will have assistance at home, and has a friend that is coming to stay with her as well. Pt. is not concerned about LE dressing or bathing. Pt. still has original bandage on knee, and states that the Dr. is going to change it later. All needs are met while pt. is up in chair. OT explains to pt. that if something changes, that OT would be happy to come back and provide skilled instruction. Education OT Patient Education: Correct positioning, Modified ADL techniques, Progress toward Goal/Update tx plan, Purpose of tx/functional activities, Reviewed precautions, Rehab process, Transfer techniques Teaching Recipient: Patient Teaching Methods: Demonstration, Discussion Response to Teaching: Verbalize Understanding, Return Demonstration OT Short Term Goals Short Term Goals 1=Demonstrate adherence to instructed precautions during ADL tasks. 2=Patient will verbalize/demonstrate understanding of assistive devices/ modifications for ADL. 3=Patient will improve strength/tolerance for activity to enable patient to perform ADL's. OT Parcel Post Clerk Goals [facility] Goals Time Frame: Jul 24, 2016 Additional Goals: 1-Demonstrate ADL Tasks, 2-Verbalize Understanding, 3- ImproveStrength/Domenic 1=Demonstrate adherence to instructed precautions during ADL tasks. 2=Patient will verbalize/demonstrate understanding of assistive devices/ modifications for ADL. 3=Patient will improve strength/tolerance for activity to enable patient to perform ADL's. Pt. met all OT goals this date. No further OT instruction needed at this time. OT Education/Plan Problem List/Assessment Assessment: No Skilled OT Needs ID'd Discharge Recommendations Plan/Recommendations: Discharge/Goals Met Therapy D/C Recommendations: Home w/ Family Support Comment Pt. does state that she will need a walker at home. Plans to let the child welfare social worker know this before discharge. Target Placement Home with family support. Treatment Plan/Plan of Care Treatment,Training & Education: Yes Plan of Care: ADL Retraining, Functional Mobility, UE Funct Exercise/Act Treatment Duration: Jul 24, 2016 Visits Per Week: 1 visit. No further OT indicated. Agreement: Yes Rehab Potential: Good Time/GCodes Start Time: 10:40 Stop Time: 11:00 Total Time Billed (hr/min): 20 Billed Treatment Time 1, EVlow x 20minutes DC as goals are met. ERIC KRAMER OT Jul 24, 2016 14:40
--- NOTE | 2016-07-24 15:28 | Physical Therapy Daily Note ---
PT Daily Note-Current Subjective Patient agrees to PT. Patient has had oral pain medication and POTATO PEELING MACHINE OPERATOR. Pain Numeric Pain Scale: 8 Location: Right Location Body Site: Knee Pain Description: Acute Mental Status Patient Orientation: Normal For Age Attachments: IV Transfers Functional [place] Measure 0=Not Assessed/NA 4=Minimal Assistance 1=Total Assistance 5=Supervision or Setup 2=Maximal Assistance 6=Modified [place] 3=Moderate Assistance 7=Complete IndependenceIRFPAI Quality Coding Scale 6 Independent with activity with or without an assistive device 5 Patient requires set up or clean up by helper. Patient completes activity by themselves 4 Supervision or touching assist (CGA). [place] provide cues , steadying assist 3 The helper provides less than half the effort to complete the activity 2 The helper provides more than half the effort to complete the activity 1 Dependent. The helper does all the effort to complete an activity 7 Patient refused to complete or attempt activity 9 The patient did not perform the activity before the current illness or injury 88 Not attempted due to Medical conditions or safety concerns Transfers (B, C, W/C) (FIM): 5 Scootin Rollin Supine to/from Sit: 5 Sit to/from Stand: 5 Gait Training Gait (FIM): 5 Distance (FIM): 3=150 ft Distance: 225' Gait Level of Assist: 5 Gait Persons Needed: 1 Gait Assistive Device: FWW slow and antalgic Exercises Supine Ex: Ankle pumps, Quad Set, Heel Slides, Straight leg raise Supine Reps: 10 Seated Therapy Exercises: Ankle pumps, Long arc quads Seated Reps: 10 Treatments CPM 0--65 degrees with polar pack in place Assessment Patient is improving with treatment. She continued to c/o increased pain of right knee, however, it is improving per her report. PT to increase activity as tolerated by patient. PT Safety Counselor Goals Safety Counselor Goals PT Safety Counselor Goals Time Frame: Jul 30, 2016 Transfers (B,C,W/C) (FIM): 5 Gait (FIM): 5 Distance: 150' Gait Level of Assist: 5 Gait Assistive Device: FWW PT Plan Treatment/Plan Treatment Plan: Continue Plan of Care Treatment Plan: Bed Mobility, Education, Functional Activity Domenic, Functional Strength, Gait, Safety, Therapeutic Exercise, Transfers Treatment Duration: Jul 30, 2016 Visits Per Week: 10-11 Minutes/Day (M-F): 15-30 Minutes/Day (Sat/Lara): 15-30 Time/GCodes Time In: 1430 Time Out: 1520 Total Billed Treatment Time: 50 Total Billed Treatment 1 visit EX x 2 30 min GT 20 min CA LIRIANO PT Jul 24, 2016 15:28
[2016-07-24 16:00] VITALS: BP 130/79
[2016-07-24 20:00] VITALS: BP 120/76
[2016-07-25 00:05] VITALS: BP 138/65
[2016-07-25] MEDS: oxyCODONE/APAP 5/325MG (PERCOCET 5) TABLET PO PRN ×7 (03:58→20:26)
[2016-07-25 04:15] VITALS: BP 120/57
[2016-07-25 06:10] LABS: MEAN PLATELET VOLUME 10.3 FL (7.4-10.4); RED BLOOD COUNT 3.78 10^6/uL (4.35-5.85); RED CELL DISTRIBUTION WIDTH 15.7 % (10.0-14.5)
[2016-07-25] MEDS: MULTIVIT W/MINERALS TAB (THERAGRAN M) PO SCH (06:24)
[2016-07-25 06:48] LABS: ALANINE AMINOTRANSFERASE 19 U/L (0-55); ALBUMIN 3.1 G/DL (3.2-4.5); ANION GAP 8 MMOL/L (5-14); ASPARTATE AMINO TRANSFERASE 16 U/L (5-34); BILIRUBIN,TOTAL 0.4 MG/DL (0.1-1.0); BLOOD UREA NITROGEN 8 MG/DL (7-18); BUN/CREATININE RATIO 11; CALCIUM 8.1 MG/DL (8.5-10.1); CARBON DIOXIDE 23 MMOL/L (21-32); CHLORIDE 106 MMOL/L (98-107); CREATININE SERUM 0.71 MG/DL (0.60-1.30); GFR ESTIMATED > 60; GLUCOSE 163 MG/DL (70-105); POTASSIUM 3.7 MMOL/L (3.6-5.0); SODIUM 137 MMOL/L (135-145); TOTAL PROTEIN 5.8 G/DL (6.4-8.2)
--- NOTE | 2016-07-25 06:51 | Progress Note-Standard ---
Standard Progress Note Progress Notes/Assess & Plan Date Seen by Provider: Jul 25, 2016 Time Seen by Provider: 06:50 Progress/Assessment & Plan Post op check No complaints Radiographs--HW well positioned. No fractures RLE--2 plus DP pulse with brisk cap refill. Sensation intact throughout. Intact DF and PF of toes and ankle s/p RTKA Mobilize as able Final Diagnosis feeling better today Vital Signs Date Time Temp Pulse Resp B/P (MAP) Pulse Ox O2 Delivery O2 Flow Rate FiO2 07/25/16 06:00 18 07/25/16 04:15 99.8 94 22 120/57 95 2.00 07/25/16 02:11 91 2.00 07/25/16 00:05 97.8 99 20 138/65 96 2.00 07/24/16 22:55 95 07/24/16 20:00 99.3 103 20 120/76 98 07/24/16 19:00 93 07/24/16 18:10 18 07/24/16 17:55 98.2 07/24/16 17:55 98.2 07/24/16 17:26 20 07/24/16 16:00 98.2 92 20 130/79 93 07/24/16 15:37 93 07/24/16 14:19 98.4 07/24/16 12:04 98.4 07/24/16 12:00 98.9 83 12 118/72 98 07/24/16 11:00 18 07/24/16 10:33 98.4 07/24/16 10:29 92 07/24/16 08:40 18 07/24/16 08:00 98.4 92 27 129/67 95 I & O 07/25/16 07:00 Intake Total 4280 ml Balance 4280 ml Laboratory Tests Test 07/25/16 05:50 Range/Units White Blood Count 9.0 4.3-11.0 10^3/uL Red Blood Count 3.78 L 4.35-5.85 10^6/uL Hemoglobin 9.6 L 11.5-16.0 G/DL Hematocrit 31 L 35-52 % Mean Corpuscular Volume 82 80-99 FL Mean Corpuscular Hemoglobin 25 25-34 PG Mean Corpuscular Hemoglobin Concent 31 L 32-36 G/DL Red Cell Distribution Width 15.7 H 10.0-14.5 % Platelet Count 240 130-400 10^3/uL Mean Platelet Volume 10.3 7.4-10.4 FL Sodium Level 137 135-145 MMOL/L Potassium Level 3.7 3.6-5.0 MMOL/L Chloride Level 106 98-107 MMOL/L Carbon Dioxide Level 23 21-32 MMOL/L Anion Gap 8 5-14 MMOL/L Blood Urea Nitrogen 8 7-18 MG/DL Creatinine 0.71 0.60-1.30 MG/DL Estimat Glomerular Filtration Rate > 60 BUN/Creatinine Ratio 11 Glucose Level 163 H 70-105 MG/DL Calcium Level 8.1 L 8.5-10.1 MG/DL Total Bilirubin 0.4 0.1-1.0 MG/DL Aspartate Amino Transf (AST/SGOT) 16 5-34 U/L Alanine Aminotransferase (ALT/SGPT) 19 0-55 U/L Alkaline Phosphatase 51 40-136 U/L Total Protein 5.8 L 6.4-8.2 G/DL Albumin 3.1 L 3.2-4.5 G/DL RLE--incision clean and dry. No calf tenderness. Neg Joe's. active flexion to 80 s/p RTKA progressing well continue PT/OT likely DC tomorrow GRETEL REGALADO MD Jul 25, 2016 06:51
[2016-07-25 08:51] VITALS: BP 105/71
[2016-07-25] MEDS: ENOXAPARIN 30 MG/0.3 ML (LOVENOX) SYR SC SCH ×2 (08:58→20:26)
[2016-07-25] MEDS: ASPIRIN E.C. 81 MG (ECOTRIN) TAB PO SCH (08:59)
[2016-07-25] MEDS: SENNA W/DOCUSATE (SENOKOT S) TABLET PO SCH ×2 (08:59→20:26)
--- NOTE | 2016-07-25 09:16 | Progress Note (SOAP) ---
Subjective Date Seen by Provider: Jul 25, 2016 Time Seen by Provider: 08:55 Subjective/Events-last exam PT REPORTS THAT SHE IS FEELING SO MUCH BETTER TODAY- HER PAIN IS CONTROLLED, SHE HAS BEEN TAKEN OFF OF THE PLASTIC TOP ASSEMBLER, AND SHE IS FEELING LIKE HER KNEE PAIN IS MANAGEABLE. SHE STATES THAT SHE WALKED THE STAIRS X 4 STAIRS TODAY AND SHE DID FAIRLY WELL. SHE HAS 3 STAIRS AT HOME AND SHE THINKS SHE WILL BE ABLE TO MANAGE. Review of Systems General: Fatigue HEENT: No Head Aches Pulmonary: No Dyspnea, No Cough Cardiovascular: No: Chest Pain Gastrointestinal: Constipation, No: Abdominal Pain, Nausea Genitourinary: No Dysuria, No Frequency Musculoskeletal: other Neurological: No: Weakness Objective Exam Vital Signs Date Time Temp Pulse Resp B/P (MAP) Pulse Ox O2 Delivery O2 Flow Rate FiO2 07/25/16 08:51 99.3 91 20 105/71 96 07/25/16 06:00 18 07/25/16 04:15 99.8 94 22 120/57 95 2.00 07/25/16 02:11 91 2.00 07/25/16 00:05 97.8 99 20 138/65 96 2.00 07/24/16 22:55 95 07/24/16 20:00 99.3 103 20 120/76 98 07/24/16 19:00 93 07/24/16 18:10 18 07/24/16 17:55 98.2 07/24/16 17:55 98.2 07/24/16 17:26 20 07/24/16 16:00 98.2 92 20 130/79 93 07/24/16 15:37 93 07/24/16 14:19 98.4 07/24/16 12:04 98.4 07/24/16 12:00 98.9 83 12 118/72 98 07/24/16 11:00 18 07/24/16 10:33 98.4 07/24/16 10:29 92 I & O 07/25/16 07:00 Intake Total 4280 ml Balance 4280 ml Capillary Refill : General Appearance: No Apparent Distress, WD/WN Neck: Supple Respiratory: Chest Non Tender, Lungs Clear, Normal Breath Sounds, No Accessory Muscle Use, No Respiratory Distress Cardiovascular: Regular Rate, Rhythm, No Edema Gastrointestinal: normal bowel sounds, non tender, soft, no organomegaly, no pulsatile mass Extremity: Pedal Edema Neurologic/Psychiatric: Alert, Oriented x3, No Motor/Sensory Deficits, Normal Mood/Affect Skin: Warm/Dry Lymphatic: No Adenopathy Results Lab Laboratory Tests 07/25/16 05:50: White Blood Count 9.0, Red Blood Count 3.78L, Hemoglobin 9.6L, Hematocrit 31L, Mean Corpuscular Volume 82, Mean Corpuscular Hemoglobin 25, Mean Corpuscular Hemoglobin Concent 31L, Red Cell Distribution Width 15.7H, Platelet Count 240, Mean Platelet Volume 10.3, Sodium Level 137, Potassium Level 3.7, Chloride Level 106, Carbon Dioxide Level 23, Anion Gap 8, Blood Urea Nitrogen 8, Creatinine 0.71, Estimat Glomerular Filtration Rate > 60, BUN/Creatinine Ratio 11, Glucose Level 163H, Calcium Level 8.1L, Total Bilirubin 0.4, Aspartate Amino Transf (AST/SGOT) 16, Alanine Aminotransferase (ALT/SGPT) 19, Alkaline Phosphatase 51, Total Protein 5.8L, Albumin 3.1L Assessment/Plan Assessment/Plan Assess & Plan/Chief Complaint RIGHT KNEE PAIN POST-OP TOTAL RIGHT KNEE REPLACEMENT HYPERTENSION PCOS INSULIN RESISTANCE SYNDROME OBESITY RIGHT KNEE PAIN STATUS POST TOTAL RIGHT KNEE REPLACEMENT - CONTINUE WITH PHYSICAL THERAPY, PLASTIC TOP ASSEMBLER STOPPED, CONTINUE WITH ORAL MEDICATIONS, PLAN FOR DISCHARGE TO HOME TOMORROW ON ORAL PAIN MEDICATIONS. HYPERTENSION - CONTROLLED -RESTART HOME MEDICATIONS. PCOS AND INSULIN RESISTANCE SYNDROME - RESTART VICTOZA OBESITY Clinical Quality Measures DVT/VTE Risk/Contraindication: Risk Factor Score Per Nursin RFS Level Per Nursing on Admit: 4+=Very High JARED FERNANDES MD Jul 25, 2016 09:16
--- NOTE | 2016-07-25 09:49 | Physical Therapy Daily Note ---
PT Daily Note-Current Subjective Patient is up in room ad armand. Agrees to PT. Pain Numeric Pain Scale: 5-Moderate Pain Location: Right Location Body Site: Knee Pain Description: Acute, Heavy Mental Status Patient Orientation: Normal For Age Transfers Functional [place] Measure 0=Not Assessed/NA 4=Minimal Assistance 1=Total Assistance 5=Supervision or Setup 2=Maximal Assistance 6=Modified [place] 3=Moderate Assistance 7=Complete IndependenceIRFPAI Quality Coding Scale 6 Independent with activity with or without an assistive device 5 Patient requires set up or clean up by helper. Patient completes activity by themselves 4 Supervision or touching assist (CGA). [place] provide cues , steadying assist 3 The helper provides less than half the effort to complete the activity 2 The helper provides more than half the effort to complete the activity 1 Dependent. The helper does all the effort to complete an activity 7 Patient refused to complete or attempt activity 9 The patient did not perform the activity before the current illness or injury 88 Not attempted due to Medical conditions or safety concerns Transfers (B, C, W/C) (FIM): 6 Scootin Sit to/from Stand: 6 Weight Bearing Weight Bearing Restriction: Weight Bearing/Tolerated Location Restriction: R LE Gait Training Gait (FIM): 6 Distance (FIM): 3=150 ft Distance: 300' Gait Level of Assist: 6 Gait Persons Needed: 1 Gait Assistive Device: FWW slow, step to pattern, antalgic Stair Training Stair Training: Handrails/: 1 handrail, uses walker Stairs (FIM): 2 #of Steps: 3 Stairs: Pattern: Step to Level of Assist: 5 Exercises Seated Therapy Exercises: Ankle pumps, Long arc quads Seated Reps: 10 Assessment Patient tolerated treatment well and is up in recliner with polar pack in place. Plan dismissal in a.m. after therapy. PT Mcc Goals Wood And Hardware Outfitter Goals PT Mcc Goals Time Frame: Jul 30, 2016 Transfers (B,C,W/C) (FIM): 5 Gait (FIM): 5 Distance: 150' Gait Level of Assist: 5 Gait Assistive Device: FWW PT Plan Treatment/Plan Treatment Plan: Continue Plan of Care Treatment Plan: Bed Mobility, Education, Functional Activity Domenic, Functional Strength, Gait, Safety, Therapeutic Exercise, Transfers Treatment Duration: Jul 30, 2016 Visits Per Week: 10-11 Minutes/Day (M-F): 15-30 Minutes/Day (Sat/Lara): 15-30 Time/GCodes Time In: 820 Time Out: 845 Total Billed Treatment Time: 25 Total Billed Treatment 1 visit GT 15 min FA 10 min CA LIRIANO PT Jul 25, 2016 09:49
[2016-07-25] MEDS: morphine INJ 4 MG/ML 1 ML (VIAL/SYRINGE) IVP PRN ×2 (09:53→14:08)
[2016-07-25 12:00] VITALS: BP 116/63
--- NOTE | 2016-07-25 13:42 | Physical Therapy Daily Note ---
PT Daily Note-Current Subjective Patient agrees to PT. Pain Numeric Pain Scale: 5-Moderate Pain Location: Right Location Body Site: Knee Pain Description: Acute Mental Status Patient Orientation: Normal For Age Transfers Functional [place] Measure 0=Not Assessed/NA 4=Minimal Assistance 1=Total Assistance 5=Supervision or Setup 2=Maximal Assistance 6=Modified [place] 3=Moderate Assistance 7=Complete IndependenceIRFPAI Quality Coding Scale 6 Independent with activity with or without an assistive device 5 Patient requires set up or clean up by helper. Patient completes activity by themselves 4 Supervision or touching assist (CGA). [place] provide cues , steadying assist 3 The helper provides less than half the effort to complete the activity 2 The helper provides more than half the effort to complete the activity 1 Dependent. The helper does all the effort to complete an activity 7 Patient refused to complete or attempt activity 9 The patient did not perform the activity before the current illness or injury 88 Not attempted due to Medical conditions or safety concerns Transfers (B, C, W/C) (FIM): 6 Scootin Sit to/from Stand: 6 Gait Training Gait (FIM): 6 Distance (FIM): 3=150 ft Distance: 200' x 2 Gait Level of Assist: 6 Gait Assistive Device: FWW slow, antalgic, step to gait sequence; continues to have difficulty with weight bearing right LE due to pain Exercises Seated Therapy Exercises: Ankle pumps, Long arc quads Seated Reps: 10 Assessment Patient is progressing with treatment plan. Plan dismissal in a.m. after PT. PT encouraged patient to perform exercises PRN in bed and chair. PT Skein Tier Goals Usp Goals PT Usp Goals Time Frame: Jul 30, 2016 Transfers (B,C,W/C) (FIM): 5 Gait (FIM): 5 Distance: 150' Gait Level of Assist: 5 Gait Assistive Device: FWW PT Plan Treatment/Plan Treatment Plan: Continue Plan of Care Treatment Plan: Bed Mobility, Education, Functional Activity Domenic, Functional Strength, Gait, Safety, Therapeutic Exercise, Transfers Treatment Duration: Jul 30, 2016 Visits Per Week: 10-11 Minutes/Day (M-F): 15-30 Minutes/Day (Sat/Lara): 15-30 Time/GCodes Time In: 1300 Time Out: 1325 Total Billed Treatment Time: 25 Total Billed Treatment 1 visit GT x 2 25 min CA LIRIANO PT Jul 25, 2016 13:42
[2016-07-25 16:00] VITALS: BP 130/79
[2016-07-25 19:25] VITALS: BP 129/71
[2016-07-26] VITALS: BP 114/71
[2016-07-26] MEDS: oxyCODONE/APAP 5/325MG (PERCOCET 5) TABLET PO PRN ×4 (00:53→10:20)
[2016-07-26 04:00] VITALS: BP 133/77
[2016-07-26] MEDS: MULTIVIT W/MINERALS TAB (THERAGRAN M) PO SCH (06:01)
[2016-07-26 08:00] VITALS: BP 125/76
[2016-07-26] MEDS: ASPIRIN E.C. 81 MG (ECOTRIN) TAB PO SCH (08:29)
[2016-07-26] MEDS: SENNA W/DOCUSATE (SENOKOT S) TABLET PO SCH (08:29)
[2016-07-26] MEDS: ENOXAPARIN 30 MG/0.3 ML (LOVENOX) SYR SC SCH (08:32)
--- NOTE | 2016-07-26 09:15 | Progress Note-Standard ---
Standard Progress Note Progress Notes/Assess & Plan Date Seen by Provider: Jul 26, 2016 Time Seen by Provider: 09:14 Progress/Assessment & Plan Post op check No complaints Radiographs--HW well positioned. No fractures RLE--2 plus DP pulse with brisk cap refill. Sensation intact throughout. Intact DF and PF of toes and ankle s/p RTKA Mobilize as able Final Diagnosis No complaints Vital Signs Date Time Temp Pulse Resp B/P (MAP) Pulse Ox O2 Delivery O2 Flow Rate FiO2 07/26/16 04:00 100.2 94 18 133/77 98 Room Air 07/26/16 00:00 100.6 97 20 114/71 98 Room Air 07/25/16 19:25 99.3 93 24 129/71 94 Room Air 07/25/16 18:59 99.0 07/25/16 18:55 99.0 07/25/16 17:54 101.0 07/25/16 17:28 101.0 07/25/16 17:27 101.0 07/25/16 16:00 100.5 95 20 130/79 97 Room Air 07/25/16 12:00 98.9 105 22 116/63 96 Room Air 07/25/16 10:20 96 0.00 I & O 07/26/16 07:00 Intake Total 3920 ml Balance 3920 ml Laboratory Tests Test 07/26/16 05:46 Range/Units Hemoglobin 9.3 L 11.5-16.0 G/DL Hematocrit 29 L 35-52 % RLE--incision clean and dry. No calf tenderness. Neg Joe's s/p RTKA DC after PT today encouraged IS and ambulation for atelectasis GRETEL REGALADO MD Jul 26, 2016 09:15
[2016-07-26 11:00] VITALS: BP 138/88
--- NOTE | 2016-07-26 12:36 | Physical Therapy Daily Note ---
PT Daily Note-Current Subjective (R) knee pain, 8/10 Pain Numeric Pain Scale: 8 Location: Right Location Body Site: Knee Pain Description: Stabbing, Sharp Mental Status Patient Orientation: Person, Place, Time, Situation Transfers Functional [place] Measure 0=Not Assessed/NA 4=Minimal Assistance 1=Total Assistance 5=Supervision or Setup 2=Maximal Assistance 6=Modified [place] 3=Moderate Assistance 7=Complete IndependenceIRFPAI Quality Coding Scale 6 Independent with activity with or without an assistive device 5 Patient requires set up or clean up by helper. Patient completes activity by themselves 4 Supervision or touching assist (CGA). Sullivan provide cues , steadying assist 3 The helper provides less than half the effort to complete the activity 2 The helper provides more than half the effort to complete the activity 1 Dependent. The helper does all the effort to complete an activity 7 Patient refused to complete or attempt activity 9 The patient did not perform the activity before the current illness or injury 88 Not attempted due to Medical conditions or safety concerns Transfers (B, C, W/C) (FIM): 6 Supine to/from Sit: 6 Sit to/from Stand: 6 Bed to/from Chair: 6 Weight Bearing Weight Bearing Restriction: Weight Bearing/Tolerated Gait Training Gait (FIM): 6 Distance (FIM): 3=150 ft Distance: 175ft Gait Level of Assist: 6 Gait Persons Needed: 1 Gait Assistive Device: FWW Pt needs cueing to fully extend the (R) knee during (R) heel strike. Exercises Supine Ex: LE Protocol Supine Reps: 20 Seated Therapy Exercises: LE Protocol Seated Reps: 20 Assessment Ambulation is labored and painful. Pt needs cues for maintaining knee extension. PT Residential Goals Residential Goals PT Ancient Art Curator Goals Time Frame: Jul 30, 2016 Transfers (B,C,W/C) (FIM): 5 Gait (FIM): 5 Distance: 150' Gait Level of Assist: 5 Gait Assistive Device: FWW PT Plan Treatment/Plan Treatment Plan: Continue Plan of Care Treatment Plan: Bed Mobility, Education, Functional Activity Domenic, Functional Strength, Gait, Safety, Therapeutic Exercise, Transfers Treatment Duration: Jul 30, 2016 Visits Per Week: 10-11 Minutes/Day (M-F): 15-30 Minutes/Day (Sat/Lara): 15-30 Time/GCodes Time In: 914 Time Out: 929 Total Billed Treatment Time: 15 Total Billed Treatment 1, gt 10, ex (5) G Codes Necessary: JORGE Khan PT Jul 26, 2016 12:36
--- NOTE | 2016-07-26 12:45 | DISCHARGE SUMMARY ---
DATE OF SERVICE: 07/26/2016 DIAGNOSES: 1. Right knee primary osteoarthritis. 2. History of renal stones. 3. Hypertension. PROCEDURE: Right total knee arthroplasty. SUMMARY: The patient is a 46-year-old female who underwent a right total knee arthroplasty on the day of admission. Postoperatively she did well. At the time of discharge she was tolerating her pain with oral pain medications. She was tolerating a diet well and had cleared physical therapy. Her wound was clean and dry. She had no calf tenderness and negative Homans sign. Her hematocrit was 29. CONDITION AT DISCHARGE: Good. DISCHARGE DIET: Regular. FOLLOWUP: In 3 weeks. Home physical therapy has been arranged. DISCHARGE MEDICATIONS: Her home medications, Percocet and aspirin. Job ID: [id number] DocumentID: [id number] Dictated Date: 07/26/2016 09:14:17 In Home Nanny Date: 07/26/2016 12:45:10 Dictated By: GRETEL REGALADO MD
== END 2016-07-26 11:00 | disposition home health service (06) | DRG 470 ==
LOC: 4TH 06:15 → SURG 06:16 → 4TH 10:47
PROVIDERS: ADMIT Orthopaedic Surgery; ATTEND Orthopaedic Surgery
PROC: 0SRC0J9 Replacement of Right Knee Joint with Synthetic Substitute, Cemented, Open Approach (ICD-10-PCS; principal; 2016-07-23 07:44)
DX: M17.11 Unilateral primary osteoarthritis, right knee (principal); E66.9 Obesity, unspecified; Z68.41 Body mass index [BMI] 40.0-44.9, adult; E28.2 Polycystic ovarian syndrome; E88.81 Metabolic syndrome and other insulin resistance; F32.9 Major depressive disorder, single episode, unspecified; Z87.891 Personal history of nicotine dependence
CPT/HCPCS: 36415; 73560; 80053; 84703; 85014; 85018; 85027; 94664; 94760

== ENCOUNTER 2016-10-03 08:34 | Outpatient (RCR) | payer BC ==
[~2016-10-03 08:34] MED LIST changes: +LIRA0.6P3 SC; +LIRA0.6P3 SQ; +OXYC-197 PO
== END 2016-10-03 17:00 | disposition home or self-care (01) ==
PROVIDERS: ATTEND Orthopaedic Surgery
DX: Z47.1 Aftercare following joint replacement surgery (principal); Z96.651 Presence of right artificial knee joint

== ENCOUNTER → 2016-12-11 | Outpatient (CLI) | payer BC | LOC: RAD 07:33 | PROVIDERS: ATTEND Nurse Practitioner Family | DX: Z12.31 Encounter for screening mammogram for malignant neoplasm of breast (principal) | CPT/HCPCS: 77067 ==

== ENCOUNTER 2016-12-18 08:32 | Outpatient (CLI) | payer BC ==
[~2016-12-18] VITALS: Ht 182.9 cm; Wt 149.7 kg
[2016-12-18] MEDS ORDERED: FLUO10CA29 PO (09:00)
[2016-12-18 09:02] VITALS: BP 126/83
[2016-12-18] MEDS ORDERED: MV-M1TAB38 PO (09:18)
== END 2016-12-18 09:24 ==
LOC: PREOP 08:32
PROVIDERS: ATTEND Orthopaedic Surgery
DX: Z01.818 Encounter for other preprocedural examination (principal); M23.51 Chronic instability of knee, right knee
CPT/HCPCS: 87081

== ENCOUNTER → 2018-08-13 | Outpatient (CLI) | payer BC ==
[~2018-08-13] MED LIST changes: +FLUO10CA29 PO; +HYDR-34 PO; -HYDR-3816 PO; +MV-M1TAB38 PO; -OXYC-197 PO; +OXYC1TAB87 PO
--- NOTE | 2018-08-13 08:23 | Diagnostic Imaging Report ---
PROCEDURE: CT urinary tract, rule out kidney stone. TECHNIQUE: Multiple contiguous axial images were obtained through the abdomen and pelvis without the use of intravenous contrast. Auto Exposure Controls were utilized during the CT exam to meet ALARA standards for radiation dose reduction. INDICATION: History of nephrolithiasis and hematuria. Exam compared with study 11/21/2015. FINDINGS: Previous right renal stones have resolved. There is no hydronephrosis on the right. Left upper pole renal cyst larger than prior today 4.9 cm, previously 4.4 cm. Left lower pole renal stone burden unchanged. The largest calculus in the lower pole calyx is about 4 mm long axis. No hydronephrosis. No opaque ureteral stones. There is a calculus within the midline dependent urinary bladder as a new finding from prior that stone measured 5.3 mm. The uterus and adnexa unremarkable. There is noninflamed mild sigmoid diverticulosis. There is no ascites, abscess, hematoma or fluid collection. The gallbladder is surgically absent. The liver, spleen, adrenals and pancreas unremarkable. IMPRESSION: Stone has appeared in the urinary bladder lumen. No hydronephrosis or ureteral stone. Resolution of previous right-sided stone burden. Left kidney stone is unchanged. Left renal cyst mildly larger. Dictated by: Dictated on workstation # [id number]
--- NOTE | 2018-08-13 08:59 | Diagnostic Imaging Report ---
Clinical indication: Patient with hematuria and history of nephrolithiasis. Patient has history of kidney stones. Exam: KUB x-ray. Comparison: KUB x-ray dated 01/26/2016. CT scan of the abdomen and pelvis without contrast dated 08/13/2018. Findings: There is a new grossly 5 mm calcification overlying the left of midline aspect of the low pelvis which correlates to the area of stone within the bladder seen on comparison CT scan. There is a smaller adjacent stone to the region which represents a stone posterior in the pelvis and a phlebolith on the comparison CT scan. Remainder of the phleboliths in the pelvis are stable. Stable nonobstructing calcifications overlying the inferior pole of the left kidney. Nonobstructive bowel gas pattern is seen. There is no intra-abdominal free air. Surgical clips are seen overlying the right upper quadrant which could be related to cholecystectomy changes. There are degenerative spurs involving the spine. IMPRESSION: 1: There is a new stone overlying the left of midline low pelvis region which correlates to a stone seen on the comparison CT scan which is in the bladder. 2: Again seen left nephrolithiasis. Dictated by: Dictated on workstation # [id number]
== END ==
LOC: RAD 07:24
PROVIDERS: ATTEND Nurse Practitioner Family
DX: N20.0 Calculus of kidney (principal); N28.1 Cyst of kidney, acquired
CPT/HCPCS: 74018; 74176

== ENCOUNTER → 2018-08-13 | Outpatient (CLI) | payer BC ==
[2018-08-13 12:41] LABS: BUN/CREATININE RATIO 26; CALCIUM 9.4 MG/DL (8.5-10.1); CARBON DIOXIDE 26 MMOL/L (21-32); CHLORIDE 100 MMOL/L (98-107); CREATININE SERUM 0.84 MG/DL (0.60-1.30); GFR ESTIMATED > 60; GLUCOSE 96 MG/DL (70-105); PHOSPHORUS 3.1 MG/DL (2.3-4.7); POTASSIUM 3.1 MMOL/L (3.6-5.0); SODIUM 138 MMOL/L (135-145); URIC ACID 3.6 MG/DL (2.6-7.2)
== END ==
LOC: LAB 11:51
PROVIDERS: ATTEND Urology
DX: N20.0 Calculus of kidney (principal)
CPT/HCPCS: 36415; 80048; 84100; 84550

== ENCOUNTER → 2018-10-22 | Outpatient (CLI) | payer BC ==
--- NOTE | 2018-10-22 22:56 | Diagnostic Imaging Report ---
INDICATION: Left breast lump. Correlation is made with diagnostic mammogram earlier same day. Sonographic interrogation of the area of lump in left axilla was performed. There is a lymph node at this location measuring 2.4 x 0.8 cm. No other abnormality is seen. No concerning findings are identified. IMPRESSION: Left axillary lymph node. No concerning abnormality is detected. ACR BI-RADS Category 2: Benign findings. Dictated by: Dictated on workstation # [id number]
--- NOTE | 2018-10-22 22:58 | Diagnostic Imaging Report ---
INDICATION: Palpable lump in the left axilla. Correlation is made with prior mammogram 12/11/2016 and 09/27/2014. 2-D and 3-D bilateral diagnostic mammography was performed with a Computer Aided Detection (CAD) system. 3-D tomosynthesis was also performed and reviewed. FINDINGS: Scattered fibroglandular densities are identified bilaterally. BB marker was placed at the area of palpable abnormality in left axilla. No underlying abnormality is seen. Normal-sized lymph nodes are present. Both breasts appear stable. No mass or malignant appearing microcalcifications are seen. IMPRESSION: No mammographic features suspicious for malignancy are identified. Even so, directed sonographic interrogation of the area of palpable abnormality in the left axilla is recommended and will be performed today. ACR BI-RADS Category 0: Incomplete. (Needs additional imaging evaluation). Result letter will be mailed to the patient. Note: At least 10% of breast cancer is not imaged by mammography. Dictated by: Dictated on workstation # [id number]
== END ==
LOC: RAD 13:37
PROVIDERS: ATTEND Nurse Practitioner Family
DX: N63.20 Unspecified lump in the left breast, unspecified quadrant (principal)
CPT/HCPCS: 76642; 77066

== ENCOUNTER → 2020-04-10 | Outpatient (CLI) | payer BC ==
[~2020-04-10] MED LIST changes: +ACHYD1T PO; -CETI10TA20 PO; +CETI10TA49 PO; -HYDR-3820 PO; -HYDR-3876 PO; +HYDR-3920 PO; -TAMS0.4C98 PO; +TMSL.4C PO
--- NOTE | 2020-04-10 13:10 | Diagnostic Imaging Report ---
Indication: Routine screening. Comparison is made with prior mammogram 10/22/2018 and 12/11/2016. 2-D and 3-D bilateral screening mammography was performed with CAD. Scattered fibroglandular densities are identified bilaterally. No mass or malignant appearing microcalcifications are seen. Axillae are unremarkable. IMPRESSION: BI-RADS Category 1 No mammographic features suspicious for malignancy are identified. ACR BI-RADS Category 1: Negative. Result letter will be mailed to the patient. Note: At least 10% of breast cancer is not imaged by mammography. Dictated by: Dictated on workstation # [id number]
== END ==
LOC: RAD 07:30
PROVIDERS: ATTEND Nurse Practitioner Family
DX: Z12.31 Encounter for screening mammogram for malignant neoplasm of breast (principal)
CPT/HCPCS: 77063; 77067

== ENCOUNTER 2020-09-05 05:42 | Outpatient (RCR) | payer BC ==
[~2020-09-05] VITALS: Ht 182.9 cm; Wt 127.1 kg
[~2020-09-05 05:42] MED LIST changes: -OMEP20CA18 PO
== END 2020-09-05 09:58 | disposition home or self-care (01) ==
LOC: PREOP 05:42
PROVIDERS: ATTEND Internal Medicine
DX: Z01.812 Encounter for preprocedural laboratory examination (principal); Z12.11 Encounter for screening for malignant neoplasm of colon; R13.10 Dysphagia, unspecified; Z20.822 Contact with and (suspected) exposure to COVID-19
CPT/HCPCS: 87635

== ENCOUNTER → 2020-09-05 | Outpatient (CLI) | payer BC ==
[~2020-09-05] MED LIST changes: +ASCO500C17 PO; +FLUO20CA42 PO; +MV-M1TAB20 PO; +OMEP20CA18 PO; +ZINC50TA51 PO
--- NOTE | 2020-09-05 13:07 | Diagnostic Imaging Report ---
PROCEDURE: US Non-OB pelvis comp/trans. TECHNIQUE: Multiple real-time grayscale images were obtained of the pelvis in various projections endovaginally. Transabdominal imaging was also performed. INDICATION: Right lower quadrant pain. FINDINGS: The uterus appeared normal. There is no fibroid or myometrial mass. The endometrium is 2-3 mm in thickness, unremarkable, and inhomogeneous. There is no evidence for adnexal torsion. The right ovary appeared normal. The left could not be visualized. No adnexal lesion or free fluid. IMPRESSION: Unremarkable pelvic ultrasound, nonvisualization of the left ovary likely obscured by shadowing pelvic bowel gas. Dictated by: Dictated on workstation # [id number]
== END ==
LOC: RAD 12:00
PROVIDERS: ATTEND Obstetrics & Gynecology
DX: R10.31 Right lower quadrant pain (principal)
CPT/HCPCS: 76830; 76856

== ENCOUNTER 2020-09-07 09:32 | Day surgery (SDC) | payer BC ==
--- NOTE | 2020-09-03 08:05 | HISTORY AND PHYSICAL ---
DATE OF SERVICE: PANENDOSCOPY HISTORY AND PHYSICAL HISTORY OF PRESENT ILLNESS: The patient is a 50-year-old white female being referred for screening colonoscopy as well as diagnostic EGD. She reports over the past several months, she has been having increasing difficulty with dysphagia to solids. It is associated with chest pain. She has not had any issues with regurgitation, but sometimes feels like she has to force things down with a little extra fluid. She denies weight loss, melena or bright red blood per rectum. She is not aware of any family history for GI tract malignancy. She has been feeling well otherwise. She has not had any other previous endoscopic procedures. PAST MEDICAL HISTORY: Significant for multiple recurrent kidney stones, better since she initiated hydrochlorothiazide. Osteoarthritis of the knees, which led to right total knee replacement several years ago. PAST SURGICAL HISTORY: Other than knee replacement, she has had a , cholecystectomy and right wrist surgery. 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 No significant past alcohol intake and no past smoking history. FAMILY HISTORY: Father at age of 64 with complications of diabetes and heart disease and may have succumbed to a pulmonary embolism. Mother living at age of 68, also has type 2 diabetes and osteoarthritis. REVIEW OF SYSTEMS: CONSTITUTIONAL: The patient denies change in weight, night sweats, chills or fever. She is fully vaccinated for COVID. GASTROINTESTINAL: As noted in the HPI. CARDIOVASCULAR: Denies chest pain, orthopnea, PND, pedal edema, syncope or presyncope. PULMONARY: Denies cough, wheezing or shortness of breath. PHYSICAL EXAMINATION: GENERAL: Reveals a pleasant white female in no acute distress. VITAL SIGNS: Weight is 298 pounds, blood pressure 130/86. HEENT: Unremarkable. Sclerae nonicteric. CHEST: Clear. CARDIOVASCULAR: Reveals a regular rate and rhythm without murmur, S3 or S4. ABDOMEN: Soft, supple without mass, organomegaly or tenderness. EXTREMITIES: Reveal no cyanosis, clubbing or edema. ASSESSMENT AND PLAN: The patient is undergoing diagnostic EGD due to history of dysphagia to solids and screening colonoscopy. Prep instructions with the Suprep kit were given and questions were answered. I thank you for the referral of this pleasant lady. Job ID: [id number] DocumentID: [id number] Dictated Date: 08/30/2020 17:50:25 Volunteer Services Director Date: 08/30/2020 18:02:03 Dictated By: JAVIER TAVERAS MD
[~2020-09-07] VITALS: Ht 183 cm; Wt 127.1 kg
[2020-09-07] MEDS ORDERED: LACTATED RINGERS 1,000 ML IV ONE (09:40)
[2020-09-07] MEDS ORDERED: LACTATED RINGERS 1,000 ML IV STA (09:41)
[2020-09-07] MEDS ORDERED: HURRICAINE EXT TUBE (BENZOCAINE) XX PRN (09:45)
[2020-09-07] MEDS ORDERED: LIDOCAINE JELLY 2% 6 ML SYRINGE MM PRN (09:45)
[2020-09-07 09:52] VITALS: BP 134/80
--- NOTE | 2020-09-07 11:02 | Pre-Op Note & Conscious Sedat ---
Pre-Operative Progress Note H&P Reviewed The H&P was reviewed, patient examined and no changes noted. Date H&P Reviewed: Sep 07, 2020 Time H&P Reviewed: 11:01 Conscious Sedation Pre-Proced ASA Score 2 For ASA 3 and 4: Consider anesthesia and medical clearance. Also, for patients with a history of failed moderate sedation consider anesthesia. Airway Lungs Heart ASA score ASA 1: a normal healthy patient ASA 2: a patient with a mild systemic disease (mid diabetes, controlled hypertension, obesity ASA 3: a patient with a severe systemic disease that limits activity (angina, COPD, prior Myocardial infarction) ASA 4: a patient with an incapacitating disease that is a constant threat to life (CHF, renal failure) ASA 5: a moribund patient not expected to survive 24 hrs. (ruptured aneurysm) ASA 6: a declared brain- patient whose organs are being harvested. For emergent operations, add the letter E after the classification Mallampati Classification Grade 2 Sedation Plan Analgesia, Amnesia, Plan communicated to team members, Discussed options with patient/fam, Discussed risks with patient/fam The patient is an appropriate candidate to undergo the planned procedure, sedation, and anesthesia. The patient immediately re-assessed prior to indication. JAVIER TAVERAS MD Sep 07, 2020 11:02
[2020-09-07] MEDS ORDERED: MIDAZOLAM 2 MG/2 ML (VERSED) VIAL ONE (11:36)
[2020-09-07] MEDS ORDERED: PROPOFOL INJECTION 100 ML IV ONE (11:36)
[2020-09-07] MEDS ORDERED: PROPOFOL INJECTION 50 ML IV ONE (12:13)
[2020-09-07 12:25] VITALS: BP 126/59
[2020-09-07 12:30] VITALS: BP_SYST 113; BP_SYST 129; BP_DIAS 62; BP_DIAS 74
[2020-09-07 13:00] VITALS: BP 120/64
[2020-09-07] MEDS ORDERED: OMEP20CA18 PO (13:00)
[2020-09-07 13:30] VITALS: BP 120/64
--- NOTE | 2020-09-07 16:11 | Anesthesia-General Post-Op ---
MAC Patient Condition Mental Status/LOC: Same as Preop Cardiovascular: Satisfactory Nausea/Vomiting: Absent Respiratory: Satisfactory Pain: Controlled Complications: Absent Post Op Complications Complications None Follow Up Care/Instructions Patient Instructions None needed. Anesthesiology Discharge Order Discharge Order Patient is doing well, no complaints, stable vital signs, no apparent adverse anesthesia problems. No complications reported per nursing. VERONIKA BERNABE CRNA Sep 07, 2020 16:11
--- NOTE | 2020-09-07 18:23 | OPERATIVE REPORT ---
DATE OF SERVICE: PANENDOSCOPY SUMMARY INDICATION FOR THE PROCEDURE: EGD was done for evaluation of dysphagia and colonoscopy was performed for screening purposes. DESCRIPTION OF PROCEDURE: The patient was placed in the left lateral decubitus position. Prior to undergoing colonoscopy, a digital rectal evaluation was performed. The anal sphincter tone was normal and the perianal reflexes intact. No abnormalities were noted on digital inspection of the anal canal or the distal rectal vault. The colonoscope was inserted into the oral cavity and under direct visualization advanced to the cecum. The cecum was identified by identification of ileocecal valve and cecal strap. Photographic documentation was obtained. Careful inspection was made as the colonoscope was withdrawn. The quality of prep was fair. FINDINGS: There was no evidence for internal or external hemorrhoids and the rectum was unremarkable. Present in the mid sigmoid colon was a diminutive adenomatous-appearing polyp that was removed via cold forceps. Several small sigmoid diverticulum were present without evidence for diverticulitis. The descending colon was unremarkable. Present in the splenic flexure was a questionable sessile polyp that was biopsied and submitted for histopathology. Several small transverse colonic diverticulum were noted without evidence for diverticulitis. The hepatic flexure, ascending colon and cecum were unremarkable. ASSESSMENT: Possibly two small polyps were removed, one from the mid sigmoid colon with hyperplastic features and one questionable sessile polyp noted at the splenic flexure, both several millimeters in size. There was no subsequent blood loss. As long as there are no surprises on histopathology report as long as there is no family history for colon cancer, we would just advocate consideration for repeat colonoscopy in 10 years. We then proceeded with EGD evaluation. The posterior pharynx, epiglottis, true and false vocal folds and arytenoid aperture were unremarkable to visual inspection. Proximal and mid esophagus were unremarkable in appearance. A small hiatal hernia was present with evidence for two erosions and some mild erythema noted at the Z-line. No visual findings to suggest underlying Connors's was present. No evidence for stricture formation. Biopsy was obtained and submitted for histopathology. The cardia, fundus, antrum, pylorus, pyloric channel, duodenal bulb and second portion of duodenum were unremarkable with no evidence for gastritis or peptic ulcer disease. ASSESSMENT: LA grade A reflux esophagitis is present with a small hiatal hernia. This was an otherwise unremarkable EGD. I did advise initiation of proton pump inhibitor therapy and non-medication reflux management was discussed as well. I thank you for the referral of this pleasant lady. Job ID: [id number] DocumentID: [id number] Dictated Date: 09/07/2020 12:51:24 Marble Ceiling Installer Date: 09/07/2020 18:21:27 Dictated By: JAVIER TAVERAS MD
== END 2020-09-07 13:42 ==
LOC: ENDO 09:32
PROVIDERS: ATTEND Internal Medicine
DX: Z12.11 Encounter for screening for malignant neoplasm of colon (principal); K21.00 Gastro-esophageal reflux disease with esophagitis, without bleeding; K22.10 Ulcer of esophagus without bleeding; K63.5 Polyp of colon; R13.10 Dysphagia, unspecified; K57.30 Diverticulosis of large intestine without perforation or abscess without bleeding; K44.9 Diaphragmatic hernia without obstruction or gangrene; E66.9 Obesity, unspecified; M19.90 Unspecified osteoarthritis, unspecified site; F32.9 Major depressive disorder, single episode, unspecified; Z79.899 Other long term (current) drug therapy; Z68.38 Body mass index [BMI] 38.0-38.9, adult; Z90.49 Acquired absence of other specified parts of digestive tract
CPT/HCPCS: 88305; 88313

== ENCOUNTER → 2021-05-08 | Outpatient (CLI) | payer BC ==
[~2021-05-08] MED LIST changes: +OMEP20CA18 PO
--- NOTE | 2021-05-08 09:46 | Diagnostic Imaging Report ---
INDICATION: Routine screening. COMPARISON is made with prior mammograms from 04/10/2020 and 10/22/2018. 2-D and 3-D bilateral screening mammography was performed with CAD. Scattered fibroglandular densities are identified bilaterally. The parenchymal pattern is stable. No mass or malignant-appearing microcalcifications are seen. Axillae are unremarkable. IMPRESSION: BI-RADS Category 1 No mammographic features suspicious for malignancy are identified. ACR BI-RADS Category 1: Negative. Result letter will be mailed to the patient. Note: At least 10% of breast cancer is not imaged by mammography. Dictated by: Dictated on workstation # [id number]
== END ==
LOC: RAD 07:30
PROVIDERS: ATTEND Family Medicine
DX: Z12.31 Encounter for screening mammogram for malignant neoplasm of breast (principal)
CPT/HCPCS: 77063; 77067

== ENCOUNTER 2021-05-15 16:00 | Outpatient (RCR) | payer BC | END 2021-05-16 | disposition home or self-care (01) | PROVIDERS: ATTEND Orthopaedic Surgery | DX: M19.042 Primary osteoarthritis, left hand (principal); Z98.890 Other specified postprocedural states ==

== ENCOUNTER 2021-05-20 15:46 | Outpatient (RCR) | payer BC | END 2021-05-20 17:00 | disposition home or self-care (01) | PROVIDERS: ATTEND Orthopaedic Surgery | DX: M19.042 Primary osteoarthritis, left hand (principal); Z98.890 Other specified postprocedural states ==

== ENCOUNTER → 2022-06-04 | Outpatient (CLI) | payer BC ==
--- NOTE | 2022-06-04 09:18 | Diagnostic Imaging Report ---
Indication: Routine screening. Comparison is made with prior mammogram from 05/08/2021 and 04/10/2020. 2-D and 3-D bilateral screening mammography was performed with CAD. CAD is utilized. The current study was also evaluated with a Computer Aided Detection (CAD) system. Scattered fibroglandular densities are identified bilaterally. The parenchymal pattern is stable. No mass or malignant-appearing microcalcifications are seen. There are scattered benign calcifications. Axillae are unremarkable. IMPRESSION: BI-RADS Category 2 No mammographic features suspicious for malignancy are identified. ACR BI-RADS Category 2: Benign findings. Result letter will be mailed to the patient. Note: At least 10% of breast cancer is not imaged by mammography. Dictated by: Dictated on workstation # [id number]
== END ==
LOC: RAD 07:16
PROVIDERS: ATTEND Nurse Practitioner Family
DX: Z12.31 Encounter for screening mammogram for malignant neoplasm of breast (principal)
CPT/HCPCS: 77063; 77067

== ENCOUNTER → 2022-10-02 | Outpatient (CLI) | payer BC ==
--- NOTE | 2022-10-02 16:14 | Diagnostic Imaging Report ---
EXAMINATION: Left foot radiographs, 3 views. COMPARISON: None. HISTORY: 52-year-old female, left foot pain and swelling. FINDINGS: There is flattening of the articulating surfaces of the second and third metatarsal heads. 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 There is a prominent calcaneal heel spur. There is dorsal degenerative type enthesopathy of the midfoot. There is no radiopaque foreign body. IMPRESSION: 1. 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 2. Prominent calcaneal heel spur. Dictated by: Dictated on workstation # [id number]
--- NOTE | 2022-10-02 16:16 | Diagnostic Imaging Report ---
EXAMINATION: Left ankle radiographs, 3 views. COMPARISON: None. HISTORY: 52-year-old female, left ankle and foot pain and swelling. FINDINGS: There is generalized subcutaneous edema at the level of the distal tibia and fibula. The alignment of the ankle mortise is unremarkable. There is no tibiotalar joint effusion. There is a prominent calcaneal heel spur. There is dorsal degenerative type enthesopathy of the midfoot. There is no identified acute fracture. There is some productive bone formation arising from the distal aspect of the medial malleolus IMPRESSION: . 1. Generalized subcutaneous edema at the level of the distal tibia and fibula. 2. No acute osseous abnormality. 3. Prominent calcaneal heel spur. Dictated by: Dictated on workstation # [id number]
== END ==
LOC: RAD 15:10
PROVIDERS: ATTEND Physician Assistant
DX: M77.32 Calcaneal spur, left foot (principal); R60.1 Generalized edema
CPT/HCPCS: 73610; 73630

== ENCOUNTER → 2023-01-23 | Outpatient (CLI) | payer BC ==
--- NOTE | 2023-01-23 09:25 | Diagnostic Imaging Report ---
PROCEDURE: Pelvic comp/transvaginal sonogram. TECHNIQUE: Complete transabdominal and transvaginal pelvic ultrasound was performed. In addition, limited pelvic Doppler was performed. INDICATION: Pelvic and perineal pain. Uterus is anteverted measuring 8.2 x 4.7 x 4.6 cm. Endometrium is 9 mm in thickness. No myometrial mass is identified. Right ovary measures 2.2 x 1.9 x 2.3 cm and left ovary measures 2.6 x 1.9 x 2.7 cm. Both ovaries demonstrate blood flow. No adnexal mass or free pelvic fluid is detected. IMPRESSION: Unremarkable transabdominal and transvaginal pelvic ultrasound with limited pelvic Doppler. Dictated by: Dictated on workstation # [id number]
== END ==
LOC: RAD 07:55
PROVIDERS: ATTEND Obstetrics & Gynecology
DX: R10.2 Pelvic and perineal pain (principal)
CPT/HCPCS: 76830; 76856